=== PATIENT | male | born 2000 | race African-American/Black ===

== ENCOUNTER 2022-06-30 15:03 | Emergency (ER) | payer SELFPAY ==
[~2022-06-30] VITALS: Ht 182.9 cm; Wt 82.0 kg
[~2022-06-30 15:03] MED LIST: ALBUTEROL
[2022-06-30 15:06] VITALS: BP 112/73
[2022-06-30] MEDS ORDERED: HYDROCODONE/ACETAMINOPHEN 5/325MG TABLET PO ONE (15:45)
[2022-06-30] MEDS ORDERED: NAPR-681 MT (17:12)
== END 2022-06-30 19:30 | disposition home or self-care (01) ==
LOC: ER 15:03
DX: M25.511 Pain in right shoulder (principal); M25.561 Pain in right knee; M25.521 Pain in right elbow; J45.909 Unspecified asthma, uncomplicated; V43.62XA Car passenger injured in collision with other type car in traffic accident, initial encounter; W22.12XA Striking against or struck by front passenger side automobile airbag, initial encounter; Y93.89 Activity, other specified; Y92.488 Other paved roadways as the place of occurrence of the external cause
CPT/HCPCS: 29125; 73030; 73080; 73562; 99284

== ENCOUNTER 2023-08-18 15:46 | Emergency (ER) | payer BC ==
[~2023-08-18] VITALS: Ht 182.9 cm; Wt 72.0 kg
[~2023-08-18 15:46] MED LIST changes: +NAPR-681 MT
[2023-08-18 15:58] VITALS: BP 126/82; PULSE 64; RESP 18; TEMP 98.2; O2SAT 100
== END 2023-08-18 18:05 | disposition left against medical advice (07) ==
LOC: ER 15:57
DX: J45.909 Unspecified asthma, uncomplicated (principal)
CPT/HCPCS: 99281